=== PATIENT | male | born 1940 | race Caucasian/White ===

== ENCOUNTER 2020-04-14 11:17 | Inpatient (IN) ==
[2020-04-14] MEDS ORDERED: NS 0.9% 1000 ml BAG 1,000 ML IV.FLUID IV ONE (11:43)
[2020-04-14 12:03] LABS: ABS Lymphocytes 0.3 10^3/ul (1.0-4.8); ABS Monocytes 0.5 10^3/ul (0-0.8); Hematocrit 32 % (42-52); Hemoglobin 11.3 g/dL (14.0-18.0); Lymphocyte % 3.9 %; Mean Corpuscular HGB Conc 35 g/dL (31-36); Mean Corpuscular Hemoglobin 31 pg (27-31); Mean Corpuscular Volume 89 fL (80-94); Mean Platelet Volume 8.7 fL (7.4-10.4); Nucleated Red Blood Cells % 0.1; Platelet Count 118 10^3/uL (150-450); Red Blood Count 3.61 10^6 /uL (4.18-5.48); Red Cell Distribution Width 14 % (10-15); White Blood Count 7.4 10^3/uL (3.5-10.8)
[2020-04-14 12:15] LABS: Activated Partial Thrombo Time 61.1 seconds (26.0-38.0)
[2020-04-14 12:17] LABS: INR 5.52 (0.82-1.09)
[2020-04-14 12:28] LABS: ALT 37 U/L (7-52); AST 30 U/L (13-39); Albumin 2.8 g/dL (3.2-5.2); Albumin/Globulin Ratio 1.1 (1-3); Alkaline Phosphatase 74 U/L (34-104); Anion Gap 9 mmol/L (2-11); BUN/Creatinine Ratio 18.8 (8-20); Blood Urea Nitrogen 66 mg/dL (6-24); CO2 Carbon Dioxide 21 mmol/L (22-32); Calcium 7.9 mg/dL (8.6-10.3); Chloride 96 mmol/L (101-111); EGFR African American 20.3 (>60); EGFR Non-African American 16.8 (>60); Globulin 2.6 g/dL (2-4); Glucose 138 mg/dL (70-100); Potassium 4.8 mmol/L (3.5-5.0); Sodium 126 mmol/L (135-145); Total Protein 5.4 g/dL (6.4-8.9)
[2020-04-14 12:33] LABS: Influenza A Molecular Negative (Negative); Influenza B Molecular Negative (Negative)
[2020-04-14] MEDS ORDERED: Vancomycin 1,000 MG in NS 0.9% 250 ml 250 ML IV ONE (12:34)
[2020-04-14 12:37] LABS: Troponin I 0.14 ng/mL (<0.03)
[2020-04-14] MEDS ORDERED: Cefepime 2 GM in Dextrose 2 GM/50 ML BAG IV ONE (12:42)
[2020-04-14] MEDS: Norepinephrine 16MCG/ML IVPRE 4,000 MCG/250 ML BAG IV SCH ×6 (14:20→22:45)
[2020-04-14] MEDS ORDERED: Ondansetron 4 mg VIAL 2 MG/ML 2 ml VIAL IV PRN (15:13)
[2020-04-14] MEDS ORDERED: Cefepime 2 GM in Dextrose 2 GM/50 ML BAG IV SCH (16:00)
[2020-04-14] MEDS ORDERED: Vasopressin 100 UNITS in D5W 250 ml BAG 245 ML IV SCH (17:30)
[2020-04-14] MEDS ORDERED: Vancomycin per Pharmacy 1 EA NOTE FOLLOW UP SCH (18:00)
[2020-04-14 18:05] LABS: Magnesium 1.7 mg/dL (1.9-2.7)
[2020-04-14 18:14] LABS: Troponin I 0.22 ng/mL (<0.03)
[2020-04-14 18:26] LABS: Urine Appearance Cloudy; Urine Bilirubin Negative (Negative); Urine Blood Negative (Negative); Urine Color Amber; Urine Glucose Negative (Negative); Urine Ketones Negative (Negative); Urine Nitrite Negative (Negative); Urine Protein 1+(30 mg/dL) (Negative); Urine Specific Gravity 1.014 (1.010-1.030); Urine Urobilinogen Negative (Negative)
[2020-04-14 18:36] LABS: Urine Bacteria Absent (Absent); Urine Cellular Casts Present (Absent); Urine Granular Casts Present (Absent); Urine Red Blood Cell Trace(0-2/hpf) (Absent); Urine Red Blood Cell Casts Present (Absent); Urine Squamous Epithelial Cell Present (Absent); Urine White Blood Cell 3+(>20/hpf) (Absent)
[2020-04-14] MEDS ORDERED: Magnesium Sulfate 2 gm BAG 2 GM/50 ML BAG IVPB ONE (18:59)
[2020-04-14 20:47] LABS: Albumin 2.7 g/dL (3.2-5.2); Albumin/Globulin Ratio 1.1 (1-3); BUN/Creatinine Ratio 23.2 (8-20); Calcium 7.5 mg/dL (8.6-10.3); EGFR African American 21.7 (>60); EGFR Non-African American 17.9 (>60); Globulin 2.5 g/dL (2-4); Potassium 4.6 mmol/L (3.5-5.0); Total Protein 5.2 g/dL (6.4-8.9)
[2020-04-14] MEDS: Pantoprazole VIAL 40 MG VIAL IV SCH (21:41)
[2020-04-14 23:29] LABS: Troponin I 0.36 ng/mL (<0.03)
[2020-04-15] MEDS: Cefepime 1 GM in Dextrose 1 GM/50 ML BAG IV SCH ×2 (00:06→12:54)
[2020-04-15] MEDS: Norepinephrine 16MCG/ML IVPRE 4,000 MCG/250 ML BAG IV SCH ×7 (01:22→23:22)
[2020-04-15 02:27] LABS: Troponin I 0.35 ng/mL (<0.03)
[2020-04-15 04:38] LABS: Albumin 2.8 g/dL (3.2-5.2); Albumin/Globulin Ratio 1.1 (1-3); BUN/Creatinine Ratio 27.7 (8-20); Calcium 7.4 mg/dL (8.6-10.3); EGFR African American 28.7 (>60); EGFR Non-African American 23.7 (>60); Globulin 2.6 g/dL (2-4); Potassium 4.4 mmol/L (3.5-5.0); Total Bilirubin 1.5 mg/dL (0.2-1.0); Total Protein 5.4 g/dL (6.4-8.9)
[2020-04-15 04:59] LABS: ABS Lymphocytes 0.3 10^3/ul (1.0-4.8); ABS Monocytes 0.3 10^3/ul (0-0.8); Hematocrit 31 % (42-52); Hemoglobin 10.7 g/dL (14.0-18.0); Lymphocyte % 5.7 %; Mean Corpuscular HGB Conc 34 g/dL (31-36); Mean Corpuscular Hemoglobin 31 pg (27-31); Mean Corpuscular Volume 90 fL (80-94); Mean Platelet Volume 8.9 fL (7.4-10.4); Nucleated Red Blood Cells % 0.1; Platelet Count 84 10^3/uL (150-450); Red Blood Count 3.47 10^6 /uL (4.18-5.48); Red Cell Distribution Width 15 % (10-15); White Blood Count 5.8 10^3/uL (3.5-10.8)
[2020-04-15] MEDS ORDERED: Phytonadione IV (Adult) 10 MG/ML 1 ML AMP IV ONE (05:13)
[2020-04-15 05:14] LABS: INR 9.3 (0.82-1.09)
[2020-04-15] MEDS ORDERED: Phytonadione IV (Adult) 5 MG in NS 0.9% 50 ML 50 ML IV ONE (06:00)
[2020-04-15] MEDS ORDERED: Multivitamins/Minera Areds(NF) CAP PO SCH (09:00)
[2020-04-15] MEDS: Pantoprazole VIAL 40 MG VIAL IV SCH ×2 (11:16→22:02)
[2020-04-15 11:27] LABS: Troponin I 0.29 ng/mL (<0.03)
[2020-04-15 11:34] LABS: Magnesium 2.3 mg/dL (1.9-2.7)
[2020-04-15 12:44] LABS: INR 2.78 (0.82-1.09)
[2020-04-15] MEDS ORDERED: Vancomycin Random Level NOTE FOLLOW UP ONE (13:00)
[2020-04-15] MEDS: NS 0.9% 1000 ml BAG 1,000 ML IV SCH ×2 (14:00→16:13)
[2020-04-15] MEDS ORDERED: Vancomycin 1500 MG IV - x ONCE IVPB ONE (15:00)
[2020-04-16] MEDS: Cefepime 1 GM in Dextrose 1 GM/50 ML BAG IV SCH (00:27)
[2020-04-16] MEDS: Norepinephrine 16MCG/ML IVPRE 4,000 MCG/250 ML BAG IV SCH ×5 (02:08→12:34)
[2020-04-16 04:39] LABS: EGFR African American 58.7 (>60); EGFR Non-African American 48.5 (>60)
[2020-04-16 04:52] LABS: ABS Lymphocytes 0.3 10^3/ul (1.0-4.8); ABS Monocytes 0.5 10^3/ul (0-0.8); Eosinophil % 0.2 %; Hematocrit 30 % (42-52); Lymphocyte % 6.4 %; Mean Corpuscular HGB Conc 34 g/dL (31-36); Mean Corpuscular Hemoglobin 31 pg (27-31); Mean Corpuscular Volume 90 fL (80-94); Mean Platelet Volume 10.7 fL (7.4-10.4); Platelet Count 56 10^3/uL (150-450); Red Blood Count 3.27 10^6 /uL (4.18-5.48); Red Cell Distribution Width 15 % (10-15); White Blood Count 4.5 10^3/uL (3.5-10.8)
[2020-04-16 04:54] LABS: Albumin 2.5 g/dL (3.2-5.2); Albumin/Globulin Ratio 0.9 (1-3); Calcium 7.6 mg/dL (8.6-10.3); Globulin 2.7 g/dL (2-4); Magnesium 2.2 mg/dL (1.9-2.7); Potassium 4.4 mmol/L (3.5-5.0); Total Bilirubin 1.5 mg/dL (0.2-1.0); Total Protein 5.2 g/dL (6.4-8.9)
[2020-04-16 05:04] LABS: Vancomycin Random 11.1 mcg/mL
[2020-04-16] MEDS ORDERED: Vancomycin Random Level NOTE FOLLOW UP ONE (06:00)
[2020-04-16] MEDS: Multivitamins/Minerals TAB PO SCH (09:05)
[2020-04-16] MEDS: Pantoprazole VIAL 40 MG VIAL IV SCH (09:05)
[2020-04-16] MEDS ORDERED: Iodixanol (CONTRAST) 320 MG/ML 100 ML SDV IV SCH (11:42)
[2020-04-16] MEDS ORDERED: Potassium Phosphate IV 15 MMOLE in NS 0.9% 250 ml 250 ML IVPB ONE (12:00)
[2020-04-16 12:14] LABS: INR 1.91 (0.82-1.09)
[2020-04-16] MEDS ORDERED: Phenylephrine IV 50 MG in NS 0.9% 250 ml 245 ML IV SCH (18:00)
[2020-04-16 19:32] LABS: CRP High Sensitivity 162.86 mg/L (<2.00)
[2020-04-17 04:28] LABS: ABS Basophils 0.1 10^3/ul (0-0.2); ABS Lymphocytes 0.9 10^3/ul (1.0-4.8); ABS Monocytes 0.6 10^3/ul (0-0.8); Eosinophil % 0.7 %; Hematocrit 28 % (42-52); Hemoglobin 9.6 g/dL (14.0-18.0); Lymphocyte % 25.6 %; Mean Corpuscular HGB Conc 34 g/dL (31-36); Mean Corpuscular Hemoglobin 31 pg (27-31); Mean Corpuscular Volume 90 fL (80-94); Mean Platelet Volume 11.1 fL (7.4-10.4); Nucleated Red Blood Cells % 0.1; Platelet Count 47 10^3/uL (150-450); Red Blood Count 3.11 10^6 /uL (4.18-5.48); Red Cell Distribution Width 15 % (10-15); White Blood Count 3.5 10^3/uL (3.5-10.8)
[2020-04-17 04:39] LABS: Albumin 2.5 g/dL (3.2-5.2); BUN/Creatinine Ratio 30.9 (8-20); Calcium 7.8 mg/dL (8.6-10.3); EGFR African American 77.5 (>60); EGFR Non-African American 64.1 (>60); Globulin 2.4 g/dL (2-4); Potassium 4.9 mmol/L (3.5-5.0); Total Bilirubin 1.4 mg/dL (0.2-1.0); Total Protein 4.9 g/dL (6.4-8.9)
[2020-04-17] MEDS: Multivitamins/Minerals TAB PO SCH (09:10)
[2020-04-17 10:10] LABS: INR 3.03 (0.82-1.09)
[2020-04-18] MEDS: Multivitamins/Minerals TAB PO SCH (08:00)
[2020-04-19 06:20] LABS: Hematocrit 32 % (42-52); Hemoglobin 11.1 g/dL (14.0-18.0); Mean Corpuscular HGB Conc 35 g/dL (31-36); Mean Corpuscular Hemoglobin 31 pg (27-31); Mean Corpuscular Volume 90 fL (80-94); Mean Platelet Volume 10.6 fL (7.4-10.4); Platelet Count 137 10^3/uL (150-450); Red Blood Count 3.58 10^6 /uL (4.18-5.48); Red Cell Distribution Width 15 % (10-15)
[2020-04-19 06:25] LABS: INR 3.49 (0.82-1.09)
[2020-04-19 06:36] LABS: Albumin 2.7 g/dL (3.2-5.2); Albumin/Globulin Ratio 0.9 (1-3); BUN/Creatinine Ratio 25.8 (8-20); EGFR African American 94.1 (>60); EGFR Non-African American 77.8 (>60); Potassium 4.5 mmol/L (3.5-5.0); Total Protein 5.7 g/dL (6.4-8.9)
[2020-04-19 08:50] LABS: ABS Basophils 0.1 10^3/ul (0-0.2); ABS Eosinophils 0.1 10^3/ul (0-0.6); ABS Lymphocytes 2.7 10^3/ul (1.0-4.8); ABS Monocytes 0.6 10^3/ul (0-0.8); Eosinophil % 1.3 %; Lymphocyte % 44.2 %; Nucleated Red Blood Cells % 0.2
[2020-04-19] MEDS: Multivitamins/Minerals TAB PO SCH (09:16)
[2020-04-19] MEDS ORDERED: Senna TAB 8.6 mg TAB PO SCH (21:00)
[2020-04-20 06:40] LABS: Hematocrit 31 % (42-52); Hemoglobin 10.8 g/dL (14.0-18.0); Mean Corpuscular HGB Conc 35 g/dL (31-36); Mean Corpuscular Hemoglobin 31 pg (27-31); Mean Corpuscular Volume 91 fL (80-94); Mean Platelet Volume 9.3 fL (7.4-10.4); Platelet Count 204 10^3/uL (150-450); Red Blood Count 3.44 10^6 /uL (4.18-5.48); Red Cell Distribution Width 16 % (10-15); White Blood Count 7.1 10^3/uL (3.5-10.8)
[2020-04-20 06:51] LABS: INR 3.67 (0.82-1.09)
[2020-04-20 07:54] LABS: ABS Basophils 0.1 10^3/ul (0-0.2); ABS Eosinophils 0.1 10^3/ul (0-0.6); ABS Lymphocytes 2.9 10^3/ul (1.0-4.8); ABS Monocytes 0.7 10^3/ul (0-0.8); Eosinophil % 1.1 %; Lymphocyte % 40.2 %; Nucleated Red Blood Cells % 0.3
[2020-04-20] MEDS: Multivitamins/Minerals TAB PO SCH (10:25)
[2020-04-20 12:11] VITALS: BP 120/74
== END 2020-04-20 12:20 | disposition home or self-care (01) | DRG 291 ==
LOC: ED 11:17 → ICU 15:01 → MEDTELE 04-17 14:24
PROVIDERS: ADMIT Surgery Surgical Critical Care; ATTEND Internal Medicine

== ENCOUNTER 2021-09-06 12:24 | Inpatient (IN) ==
[~2021-09-06 12:24] MED LIST: Buffered Lidocaine 1% SYRIN 1 ml INTRADERM ONE; Dexamethasone IV 4 MG/ML VIAL 1 ml VIAL IV SLOW PU ONE; Famotidine IV 10 MG/ML 2 ml VIAL (20 mg) IV ONE; Lactated Ringers 1000 ml BAG 1,000 ML IV SCH
[2021-09-06] MEDS ORDERED: fentaNYL 100 mcg/2 ml 50 MCG/ML VIAL ONE (12:47)
[2021-09-06] MEDS ORDERED: Lidocaine 2% PF 5 ML VIAL ONE (12:47)
[2021-09-06] MEDS ORDERED: Dexamethasone IV 4 MG/ML VIAL 1 ml VIAL ONE ×2 (12:47→12:55)
[2021-09-06] MEDS ORDERED: Famotidine IV 10 MG/ML 2 ml VIAL (20 mg) ONE (12:55)
[2021-09-06] MEDS ORDERED: Clindamycin 900 MG/D5W BAG 0 MG/0 ML BAG IVPB ONE (12:55)
[2021-09-06 13:27] VITALS: BP 159/100
[2021-09-06 14:17] LABS: Activated Partial Thrombo Time 39.4 seconds (26.0-38.0); INR 1.56 (0.86-1.15)
== END 2021-09-06 13:00 | disposition home or self-care (01) | DRG 561 ==
LOC: AA 12:24
PROVIDERS: ADMIT Orthopaedic Surgery Adult Reconstructive Orthopaedic Surgery; ATTEND Orthopaedic Surgery Adult Reconstructive Orthopaedic Surgery

== ENCOUNTER 2021-09-15 12:39 | Observation (INO) ==
[~2021-09-15 12:39] MED LIST changes: -Dexamethasone IV 4 MG/ML VIAL 1 ml VIAL IV SLOW PU ONE; -Famotidine IV 10 MG/ML 2 ml VIAL (20 mg) IV ONE
[2021-09-15] MEDS ORDERED: Clindamycin 900 MG/D5W BAG 900 MG/50 ML BAG IVPB ONE (13:21)
[2021-09-15 13:29] LABS: Hematocrit 50 % (42-52); Hemoglobin 17.2 g/dL (14.0-18.0); Mean Corpuscular HGB Conc 34 g/dL (31-36); Mean Corpuscular Hemoglobin 31 pg (27-31); Mean Corpuscular Volume 90 fL (80-94); Mean Platelet Volume 9.3 fL (7.4-10.4); Platelet Count 223 10^3/uL (150-450); Red Blood Count 5.58 10^6 /uL (4.18-5.48); Red Cell Distribution Width 14 % (10-15); White Blood Count 7.4 10^3/uL (3.5-10.8)
[2021-09-15 13:44] LABS: INR 1.11 (0.86-1.15)
[2021-09-15] MEDS ORDERED: Lidocaine 1% MPF 5 ML VIAL ONE (14:59)
[2021-09-15] MEDS ORDERED: Bupivacaine 0.5% SDV PF 30ML VIAL ONE (14:59)
[2021-09-15] MEDS ORDERED: Dexamethasone IV 4 MG/ML VIAL 1 ml VIAL ONE ×2 (15:00→16:50)
[2021-09-15] MEDS ORDERED: fentaNYL 100 mcg/2 ml 50 MCG/ML VIAL ONE (15:00)
[2021-09-15] MEDS ORDERED: Lidocaine 2% PF 5 ML VIAL ONE (15:02)
[2021-09-15] MEDS ORDERED: fentaNYL 250 mcg/5 ml 50 MCG/ML 5 ml VIAL (250 MCG) ONE (15:02)
[2021-09-15] MEDS ORDERED: Phenylephrine IV 10 MG/ML 1 ml VIAL ONE ×2 (15:02→17:47)
[2021-09-15] MEDS ORDERED: Propofol 10 MG/ML 20 ML BTL ONE (15:04)
[2021-09-15] MEDS ORDERED: Ropivacaine 5 MG/ML 20 ML VIAL 0.5% (100 MG) ONE (15:41)
[2021-09-15] MEDS ORDERED: Rocuronium 50 mg VIAL 10 mg/ml 5 ml VIAL (50 mg) ONE (16:14)
[2021-09-15] MEDS ORDERED: Ondansetron 4 mg VIAL 2 MG/ML 2 ml VIAL ONE (16:50)
[2021-09-15] MEDS ORDERED: HYDROmorphone 1 MG/1 ML SYRINGE ONE ×2 (17:03→19:17)
[2021-09-15] MEDS ORDERED: diPHENhydraMINE IV 50 MG/ML 1 ml VIAL (BENADRYL) IV PRN ×2 (17:17→17:28)
[2021-09-15] MEDS ORDERED: fentaNYL 100 mcg/2 ml 50 MCG/ML VIAL IV PRN (17:17)
[2021-09-15] MEDS ORDERED: Ondansetron 4 mg VIAL 2 MG/ML 2 ml VIAL IV PRN ×2 (17:17→17:28)
[2021-09-15] MEDS ORDERED: DiMENhydriNATE IV 50 mg/ml 1 ml VIAL IV PUSH PRN (17:17)
[2021-09-15] MEDS ORDERED: Naloxone 0.4 mg VIAL 0.4 mg/ml 1 ml VIAL IV PRN (17:17)
[2021-09-15] MEDS ORDERED: Magnesium Hydroxide LIQ 30 ML UDC PO PRN (17:28)
[2021-09-15] MEDS ORDERED: Ondansetron ODT 4 mg TAB 4 MG TAB PO PRN (17:28)
[2021-09-15] MEDS ORDERED: diPHENhydraMINE 25 mg TAB PO PRN (17:28)
[2021-09-15] MEDS ORDERED: Lactulose 30 ml UDC PO PRN (17:28)
[2021-09-15] MEDS ORDERED: Morphine 2 MG/ML SYRINGE IV PRN (17:28)
[2021-09-15] MEDS ORDERED: Acetaminophen IV 1 GM/100ML 100 ML IV ONE (17:52)
[2021-09-15] MEDS ORDERED: Lactated Ringers 1000 ml BAG 1,000 ML IV SCH (18:00)
[2021-09-15] MEDS: HYDROmorphone 1 MG/1 ML SYRINGE IV PRN ×2 (19:15→19:30)
[2021-09-15] MEDS: Magnesium Hydroxide LIQ 30 ML UDC PO SCH (21:59)
[2021-09-16] MEDS: Clindamycin 600 MG/D5W BAG 600 MG/50 ML BAG IV SCH ×2 (00:29→08:20)
[2021-09-16 06:07] LABS: Hematocrit 46 % (42-52); Hemoglobin 15.7 g/dL (14.0-18.0); Mean Platelet Volume 9.3 fL (7.4-10.4); Platelet Count 192 10^3/uL (150-450)
[2021-09-16 06:12] LABS: INR 1.22 (0.86-1.15)
[2021-09-16 06:24] LABS: Calcium 8.5 mg/dL (8.6-10.3); Potassium 4.8 mmol/L (3.5-5.0); eGFR CKD-EPI 64.5 (>60)
[2021-09-16] MEDS: Magnesium Hydroxide LIQ 30 ML UDC PO SCH (08:24)
[2021-09-16] MEDS ORDERED: Potassium Chlor 20 meq TAB.ER PO SCH (09:00)
[2021-09-16] MEDS ORDERED: AMLODIPINE BENAZEPRIL PO SCH (09:00)
[2021-09-16] MEDS ORDERED: Enoxaparin 40 MG/0.4 ML SYR SUBCUT SCH (09:00)
[2021-09-16] MEDS ORDERED: Vitamin THERAPEUTIC TAB PO SCH (09:00)
[2021-09-16 11:59] VITALS: BP 133/86
== END 2021-09-16 14:45 | disposition home or self-care (01) ==
LOC: INTOOBSV 12:39 → AA 12:39 → SSU 21:17
PROVIDERS: ADMIT Orthopaedic Surgery Adult Reconstructive Orthopaedic Surgery; ATTEND Orthopaedic Surgery Adult Reconstructive Orthopaedic Surgery